=== PATIENT | male | born 1975 ===

== ENCOUNTER 2017-02-04 05:56 | Emergency (ER) | payer SELFPAY ==
[2017-02-04 06:06] VITALS: RESP 20
--- NOTE | 2017-02-04 06:15 | C.PDOC ---
Time Seen by Provider: 02/04/17 06:10 Chief Complaint (Nursing): Back Pain Past Medical History Vital Signs: Last Vital Signs Temp 98.2 F 02/04/17 06:03 Pulse 92 H 02/04/17 06:03 Resp 20 02/04/17 06:03 BP 128/88 02/04/17 06:03 Pulse Ox 97 02/04/17 06:03 - Social History Hx Alcohol Use: No Hx Substance Use: No ED Course And Treatment O2 Sat by Pulse Oximetry: 97 Disposition - Disposition
--- NOTE | 2017-02-04 06:15 | C.PDOC ---
History Of Present Illness 41 year old male presents to the ED c/o lower back pain radiating towards the upper back that started yesterday after he went to the gym. Patient report he has been taking only Tylenol for his pain and once he stands up he feels the pain. Patient denies nausea, vomit, fever, chills, abdominal pain, incontinence , saddle anesthesia, weakness, numbness. Time Seen by Provider: 02/04/17 06:10 Chief Complaint (Nursing): Back Pain History Per: Patient History/Exam Limitations: no limitations Onset/Duration Of Symptoms: Days Current Symptoms Are (Timing): Still Present Quality Of Discomfort: "Pain" Severity: Mild Previous Symptoms: Back Pain Associated Symptoms: None Exacerbating Factor(s): Movement, Standing Recent travel outside of the [place]: No Additional History Per: Patient Past Medical History Reviewed: Historical Data, Nursing Documentation, Vital Signs Vital Signs: Last Vital Signs Temp 98.2 F 02/04/17 06:03 Pulse 92 H 02/04/17 06:03 Resp 20 02/04/17 06:03 BP 128/88 02/04/17 06:03 Pulse Ox 97 02/04/17 06:17 - Medical History PMH: No Chronic Diseases Surgical History: No Surg Hx Family History: States: Unknown Family Hx - Social History Hx Alcohol Use: No Hx Substance Use: No Review Of Systems Constitutional: Negative for: Fever, Chills Eyes: Negative for: Vision Change Cardiovascular: Negative for: Chest Pain, Palpitations Respiratory: Negative for: Cough, Shortness of Breath Gastrointestinal: Negative for: Nausea, Vomiting, Abdominal Pain Genitourinary: Negative for: Incontinence Musculoskeletal: Positive for: Back Pain Skin: Negative for: Rash Neurological: Negative for: Weakness, Numbness Physical Exam - Physical Exam Appears: Non-toxic, No Acute Distress Skin: Normal Color, Warm, Dry Head: Atraumatic, Normacephalic Nose: No Discharge, No Deformity Oral Mucosa: Moist Neck: Normal ROM, Supple Chest: Symmetrical Cardiovascular: Rhythm Regular, No Murmur Respiratory: Normal Breath Sounds, No Rales, No Rhonchi, No Wheezing Gastrointestinal/Abdominal: Soft, No Tenderness, No Distention, No Rebound Back: Paraspinal Tenderness (Diffuse lumbar) Extremity: Normal ROM, No Pedal Edema, No Calf Tenderness, No Deformity, No Swelling Neurological/Psych: Oriented x3, Normal Speech, Normal Cognition, Normal Motor, Normal Sensation Gait: Steady ED Course And Treatment O2 Sat by Pulse Oximetry: 97 (On RA) Pulse Ox Interpretation: Normal Medical Decision Making Medical Decision Making: Impression : back pain Plan: * Indocin 50 mg PO Disposition - Disposition Disposition: HOME/ ROUTINE Disposition Time: 06:20 Condition: STABLE Prescriptions: Methocarbamol [Robaxin] 750 mg PO TID PRN #14 tab PRN Reason: Pain, Mild (1-3) Naproxen [Naprosyn] 500 mg PO BID PRN #14 tab PRN Reason: Pain, Mild (1-3) Forms: [employer] (Gabonese) - Clinical Impression Clinical Impression: Low back pain - Scribe Statement The provider has reviewed the documentation as recorded by the Scribe Bill Lima All medical record entries made by the Scribe were at my direction and personally dictated by me. I have reviewed the chart and agree that the record accurately reflects my personal performance of the history, physical exam, medical decision making, and the department course for this patient. I have also personally directed, reviewed, and agree with the discharge instructions and disposition.
[2017-02-04 06:52] VITALS: BP 122/70; PULSE 81; TEMP 97.8; O2SAT 99
== END 2017-02-04 06:52 | disposition home or self-care (01) ==
LOC: C.ER 05:56
DX: M54.5 Low back pain (principal)